=== PATIENT | female | born 1985 | race Caucasian/White ===

== ENCOUNTER 2016-04-30 16:26 | Emergency (ER) | payer SELFPAY ==
[2016-04-30] MEDS ORDERED: Ketorolac Tromethamine 60 MG/2 ML VIAL ONE (17:43)
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
--- NOTE | 2016-04-30 17:55 | RAD ---
RIGHT KNEE FOUR VIEWS 04/30/16 HISTORY: Knee injury. There is a small joint effusion present. If internal derangement is clinically suspected, MRI is sug gested for further assessment. No fractures. IMPRESSION: Small joint effusion. POS: [facility]
--- NOTE | 2016-04-30 17:57 | RAD ---
LEFT ELBOW THREE VIEWS: 04/30/16 HISTORY: Elbow injury. Lateral view is not a true lateral, but I see no signs of joint effusion or any definite signs of fr acture. IMPRESSION: Negative left elbow. POS: [facility]
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
== END 2016-04-30 18:27 | disposition home or self-care (01) ==
LOC: MADERS 16:26
DX: S80.01XA Contusion of right knee, initial encounter (principal); Z87.891 Personal history of nicotine dependence; Z79.899 Other long term (current) drug therapy; V49.9XXA Car occupant (driver) (passenger) injured in unspecified traffic accident, initial encounter
CPT/HCPCS: 71010; 96372; J1885